=== PATIENT | male | born 1955 | race Caucasian/White ===

== ENCOUNTER 2021-01-25 07:43 | Inpatient (IN) | payer MEDICARE, SELFPAY ==
[2021-01-25] VITALS (13 sets, daily range): BP systolic 95–113
[~2021-01-25] VITALS: Ht 170.2 cm; Wt 90.3 kg
--- NOTE | 2021-01-25 07:43 | NUR ---
Placed in room 8 . Placed on foley artist, blood pressure machine and pulse oximeter. To gown for exam. Side rails up.
--- NOTE | 2021-01-25 07:45 | NUR ---
Pt bib ACLS from home with c/o SOB. Pt reports having h/o A-fib, had cardiac ablation 2 days ago. Woke up at approx 3am with SOB, cough and dyspnea. O2 at home was 88%, pt placed on NRB mask and O2 increased to 97%. Other v/s stable, no acute distress noted.
--- NOTE | 2021-01-25 07:50 | NUR ---
ER Dr. Cormier at bedside examining patient.
--- NOTE | 2021-01-25 08:05 | NUR ---
# 20 gauge angiocath placed to RFA. Use of asceptic technique. Opsite placed over site. Blood return noted. Blood for lab drawn from site. Flushed with 10 cc of normal saline. No evidence of infiltration noted. Patient tolerated well.
[2021-01-25] MEDS ORDERED: NITROGLYCERIN 250 ML IV ONE (08:30)
[2021-01-25] MEDS ORDERED: FUROSEMIDE 100 MG/10 ML VIAL IVP ONE (08:30)
[2021-01-25 09:29] LABS: BASOPHILS % (AUTO) 0.1 % (0.0-2.0); EOSINOPHILS % (AUTO) 0.3 % (0.0-4.0); HEMATOCRIT 38.3 % (36-54); HEMOGLOBIN 12.7 g/dL (14.0-18.0); LYMPHOCYTES # (AUTO) 0.8 K/uL (1.0-5.5); LYMPHOCYTES % (AUTO) 5.8 % (20.5-51.5); MEAN CORPUSCULAR HEMOGLOBIN 30 pg (27-31); MEAN CORPUSCULAR HGB CONC 33 % (32-36); MEAN CORPUSCULAR VOLUME 90 fL (79.0-98.0); MONOCYTES # (AUTO) 1.1 K/uL (0.0-1.0); MONOCYTES % (AUTO) 7.4 % (1.7-9.3); NEUTROPHILS # (AUTO) 12.7 K/uL (1.8-7.7); NEUTROPHILS % (AUTO) 86.4 % (40.0-70.0); PLATELET COUNT (AUTO) 142 K/uL (130-430); RED BLOOD CELL COUNT(AUTO) 4.24 MIL/uL (4.2-6.2); RED CELL DISTRIBUTION WIDTH 13.8 % (9.0-15.0); WHITE BLOOD COUNT (AUTO) 14.7 K/uL (4.8-10.8)
[2021-01-25 09:40] LABS: CALCIUM 8.3 mg/dL (8.4-11.0); CREATININE 0.87 mg/dL (0.55-1.30); POTASSIUM 4.1 mmol/L (3.5-5.1)
[2021-01-25 09:45] LABS: ALBUMIN 3.6 g/dL (3.4-4.8); TOTAL BILIRUBIN 0.5 mg/dL (0.0-1.0)
--- NOTE | 2021-01-25 10:00 | NUR ---
Pt placed on bipap by respiratory, tolerated well.
[2021-01-25 10:14] LABS: BILIRUBIN,URINE NEGATIVE (NEGATIVE); BLOOD, URINE 3+ (NEGATIVE); COLOR,URINE YELLOW (YELLOW); GLUCOSE,URINE NEGATIVE (NEGATIVE); KETONES,URINE NEGATIVE (NEGATIVE); LEUKOCYTE ESTERASE ,URINE NEGATIVE (NEGATIVE); NITRITE, URINE NEGATIVE (NEGATIVE); PH,URINE 5.5 (5.0-8.0); PROTEIN URINE NEGATIVE (NEGATIVE); UROBILINOGEN,URINE 0.2 (0.2-1.0)
[2021-01-25] MEDS ORDERED: ASPIRIN 325 MG TABLET PO ONE (10:15)
[2021-01-25] MEDS ORDERED: OMEP20TA20 PO (10:17)
[2021-01-25] MEDS ORDERED: VITD2000 PO (10:17)
[2021-01-25] MEDS ORDERED: METO25TA6 PO (10:17)
[2021-01-25] MEDS ORDERED: RIVA20TA PO (10:17)
[2021-01-25] MEDS ORDERED: LIP20 PO (10:17)
[2021-01-25] MEDS ORDERED: PRO40 PO (10:17)
[2021-01-25] MEDS ORDERED: SILD20TA PO (10:17)
[2021-01-25] MEDS ORDERED: FURO-150 PO (10:17)
[2021-01-25] MEDS ORDERED: DILT120C89 PO (10:17)
[2021-01-25] MEDS ORDERED: POTA20TA83 PO (10:17)
--- NOTE | 2021-01-25 10:17 | NUR ---
Belongings list completed.
--- NOTE | 2021-01-25 10:17 | NUR ---
Medication reconciliation completed with information provided by Patient. Any prior medication reconciliation on file was reviewed and corrected.
[2021-01-25 10:18] LABS: CLARITY/URINE SLIGHTLY HAZY (CLEAR)
[2021-01-25 11:24] LABS: BACTERIA,URINE FEW /HPF (None Seen); WBC,URINE 0-3 /HPF (0-3)
--- NOTE | 2021-01-25 11:45 | NUR ---
Admit orders received from Dr. Solano, pt to go to ICU. Called for charge nurse, she is at lunch and will call us back.
--- NOTE | 2021-01-25 12:05 | NUR ---
Patient will be admitted to care of Dr. Solano. Admitted to ICU unit. Will go to room 5. Belongings list completed. Complete and up to date summary report printed. SBAR report to be given at bedside with opportunity for questions.
--- NOTE | 2021-01-25 12:15 | NUR ---
INITIAL PT ARRIVED TO ICU VIA BED/STRETCHER & RECEIVED REPORT FROM PACKING AND SHIPPING CLERK. RR 17; HR 81; BP WNR; TEMPERATURE OF 101.2 F TEMPORAL SCAN; O2 SAT 94%. PT A&O X3; DENIED PAIN OR DISCOMFORT. SKIN IS INTACT
--- NOTE | 2021-01-25 12:45 | NUR ---
UPDATED UPDATED PT CONDITION TO MD KAUR. TYLENOL 500 MG PRN, Q4HRS (FOR FEVER) RECEIVED; ALSO RECEIVED ORDERS FOR REGULAR DIET & ROCEPHIN IVPB 1G DAILY
--- NOTE | 2021-01-25 13:00 | NUR ---
DR. VALENZUELA AWARE OF CONSULT
[2021-01-25] MEDS ORDERED: IPRATROPIUM/ALBUTEROL SULFATE 3 ML AMPUL.NEB (DUONEB) INH PRN (13:30)
[2021-01-25] MEDS ORDERED: ACETAMINOPHEN 500 MG TABLET ONE (13:33)
[2021-01-25] MEDS: NACL 0.9% 1,000 ML IV SCH ×2 (14:45→21:37)
--- NOTE | 2021-01-25 14:51 | NUR ---
BIANCA/PASTE MIXING SUPERVISOR ASSESSED PT DR VALENZUELA ROUNDED & ASSESSED PT. DR VALENZUELA ORDERED TO TURN OFF NITROGLYCERIN DRIP
[2021-01-25] MEDS ORDERED: FAMOTIDINE 20 MG TABLET PO ONE (15:00)
[2021-01-25] MEDS ORDERED: ATORVASTATIN 20 MG TABLET PO ONE (15:30)
[2021-01-25] MEDS ORDERED: RIVAROXABAN 10 MG TABLET PO ONE (15:30)
[2021-01-25] MEDS: cefTRIAXone 1 GM in D5W 50 ML IV SCH (16:32)
[2021-01-25] MEDS: AZITHROMYCIN 500 MG in NS 250 ML IV SCH (17:24)
--- NOTE | 2021-01-25 19:19 | NUR ---
ENDORSEMENT REPORT GIVEN TO NIGHT RN FOR CONTINUING OF CARE. PT VS(S) ARE STABLE & DENIED PAIN OR DISCOMFORT
[2021-01-25] MEDS: PANTOPRAZOLE SODIUM 40 MG TAB PO SCH (21:18)
[2021-01-25] MEDS: METOPROLOL TARTRATE 25 MG TABLET PO SCH (21:19)
[2021-01-26] VITALS (19 sets, daily range): BP systolic 100–145
[2021-01-26] MEDS: NACL 0.9% 1,000 ML IV SCH ×3 (01:16→23:47)
--- NOTE | 2021-01-26 05:16 | NUR ---
Nutrition Update Jose Scale 18 noted. Pt admitted for CHF exacerbation Diet: Regular BMI: 31.2 kg/m2 RD to follow per nutrition care standards.
[2021-01-26] MEDS: ACETAMINOPHEN 500 MG TABLET PO PRN ×3 (06:24→23:04)
[2021-01-26 06:39] LABS: BASOPHILS % (AUTO) 0.2 % (0.0-2.0); EOSINOPHILS # (AUTO) 0.2 K/uL (0.0-0.4); EOSINOPHILS % (AUTO) 2.1 % (0.0-4.0); HEMATOCRIT 34.6 % (36-54); HEMOGLOBIN 11.5 g/dL (14.0-18.0); LYMPHOCYTES # (AUTO) 1.2 K/uL (1.0-5.5); LYMPHOCYTES % (AUTO) 13.5 % (20.5-51.5); MEAN CORPUSCULAR HEMOGLOBIN 30 pg (27-31); MEAN CORPUSCULAR HGB CONC 33 % (32-36); MEAN CORPUSCULAR VOLUME 91 fL (79.0-98.0); MONOCYTES % (AUTO) 11.3 % (1.7-9.3); NEUTROPHILS # (AUTO) 6.7 K/uL (1.8-7.7); NEUTROPHILS % (AUTO) 72.9 % (40.0-70.0); PLATELET COUNT (AUTO) 124 K/uL (130-430); RED BLOOD CELL COUNT(AUTO) 3.82 MIL/uL (4.2-6.2); RED CELL DISTRIBUTION WIDTH 13.6 % (9.0-15.0); WHITE BLOOD COUNT (AUTO) 9.1 K/uL (4.8-10.8)
[2021-01-26 06:56] LABS: CALCIUM 7.9 mg/dL (8.4-11.0); CREATININE 0.77 mg/dL (0.55-1.30); POTASSIUM 4.2 mmol/L (3.5-5.1); THYROID STIMULATING HORMONE 0.5 uIu/mL (0.36-3.74); TOTAL BILIRUBIN 1.1 mg/dL (0.0-1.0)
--- NOTE | 2021-01-26 08:12 | NUR ---
0730 pt in no distress, sat 96%hr 78 rr 24 on 5l nc. Addendum: 01/26/21 at 0815 by Etta Dasilva RT Amended: Links added.
[2021-01-26] MEDS: METOPROLOL TARTRATE 25 MG TABLET PO SCH ×2 (08:42→21:46)
[2021-01-26] MEDS: PANTOPRAZOLE SODIUM 40 MG TAB PO SCH ×2 (08:42→21:45)
[2021-01-26] MEDS: ATORVASTATIN 20 MG TABLET PO SCH (08:42)
[2021-01-26] MEDS: RIVAROXABAN 10 MG TABLET PO SCH (08:45)
[2021-01-26] MEDS ORDERED: FAMOTIDINE 20 MG TABLET PO SCH (09:00)
[2021-01-26] MEDS: cefTRIAXone 1 GM in D5W 50 ML IV SCH (15:14)
[2021-01-26] MEDS: AZITHROMYCIN 500 MG in NS 250 ML IV SCH (16:22)
--- NOTE | 2021-01-26 17:55 | NUR ---
RECEIVING NOTES: RECEIVED PATIENT FROM ICU VIA WHEELCHAIR. BREATHING EVEN AND NON LABORED TO RA. DENIES ANY DISCOMFORT AT THIS TIME. FALL AND SAFETY MEASURES REINFORCED. ORIENTED TO ROOM. CALL LIGHT WITHIN REACH.
--- NOTE | 2021-01-26 18:12 | NUR ---
gave report to Collette juarez, all questions answered/transferred pt by wheelchair, pt ambulates with strong gait, denies dizzyness,sob/mw
[2021-01-26] MEDS ORDERED: PROMETHAZINE HCL/CODEINE 6.25-10 mg/5 mL UDC PO PRN (20:15)
[2021-01-27] VITALS: BP_SYST 125
[2021-01-27] MEDS: ACETAMINOPHEN 500 MG TABLET PO PRN (06:27)
[2021-01-27 07:00] LABS: BASOPHILS % (AUTO) 0.3 % (0.0-2.0); EOSINOPHILS # (AUTO) 0.3 K/uL (0.0-0.4); EOSINOPHILS % (AUTO) 3.3 % (0.0-4.0); HEMATOCRIT 37.2 % (36-54); HEMOGLOBIN 12.5 g/dL (14.0-18.0); LYMPHOCYTES # (AUTO) 1.2 K/uL (1.0-5.5); LYMPHOCYTES % (AUTO) 15.5 % (20.5-51.5); MEAN CORPUSCULAR HEMOGLOBIN 30 pg (27-31); MEAN CORPUSCULAR HGB CONC 34 % (32-36); MEAN CORPUSCULAR VOLUME 91 fL (79.0-98.0); MONOCYTES # (AUTO) 0.9 K/uL (0.0-1.0); NEUTROPHILS # (AUTO) 5.4 K/uL (1.8-7.7); NEUTROPHILS % (AUTO) 69.9 % (40.0-70.0); PLATELET COUNT (AUTO) 145 K/uL (130-430); RED BLOOD CELL COUNT(AUTO) 4.11 MIL/uL (4.2-6.2); RED CELL DISTRIBUTION WIDTH 13.5 % (9.0-15.0); WHITE BLOOD COUNT (AUTO) 7.8 K/uL (4.8-10.8)
[2021-01-27 07:32] LABS: CALCIUM 8.7 mg/dL (8.4-11.0); CREATININE 0.79 mg/dL (0.55-1.30); POTASSIUM 4.2 mmol/L (3.5-5.1)
[2021-01-27 07:45] VITALS: BP_SYST 142
--- NOTE | 2021-01-27 08:00 | NUR ---
am notes late entry pt stable denies any pain or orther discomfort. vitals stable . res even and unlabored. safety/fall precautions in place and maintained. call light within reach. poc discussed with pt. verbalized understanding.will conitnue to monitor
[2021-01-27] MEDS: ATORVASTATIN 20 MG TABLET PO SCH (09:28)
[2021-01-27] MEDS: PANTOPRAZOLE SODIUM 40 MG TAB PO SCH (09:28)
[2021-01-27] MEDS: METOPROLOL TARTRATE 25 MG TABLET PO SCH (09:29)
[2021-01-27] MEDS: RIVAROXABAN 10 MG TABLET PO SCH (09:31)
[2021-01-27 12:00] VITALS: BP_SYST 129
[2021-01-27] MEDS: cefTRIAXone 1 GM in D5W 50 ML IV SCH (15:20)
--- NOTE | 2021-01-27 15:27 | NUR ---
ROUNDS PT STABLE . DENIES ANY PAIN OR DISTRESS. DENIES SOB. VITALS STABLE. DUE ANTIBIOTICS STARTED ORDERED PT TOLERATED WELL. WILL CONTINUE TO MONITOR
[2021-01-27 15:28] VITALS: BP_SYST 135
[2021-01-27] MEDS ORDERED: LEVO500T89 PO (16:09)
[2021-01-27] MEDS: AZITHROMYCIN 500 MG in NS 250 ML IV SCH (16:15)
[2021-01-27 17:21] VITALS: BP_SYST 119
--- NOTE | 2021-01-27 18:28 | NUR ---
D/C Patient Patient given medication reconciliation form and D/C instructions. Exit Care provided. Patient verbalized understanding. MD discussed with patient the results and treatment provided. Ambulatory with steady gait for discharge to home. Patient in stable condition, ID band removed. IV catheter removed, intact and dressing applied, no active bleeding. Rx of levaquin 500 mg po given. Patient educated on pain management. All belongings sent with patient.pt left home with demetri in private car
--- NOTE | 2021-01-27 18:30 | NUR ---
post chf discharge appointment pt has scheduled appointment with [facility] on 01/29/21 at 1000.
== END 2021-01-27 18:30 | disposition home or self-care (01) | DRG 871 ==
LOC: SED 07:43 → SIC 11:42 → STU 01-26 16:30
PROVIDERS: ADMIT Internal Medicine; ATTEND Internal Medicine
PROC: 5A09357 Assistance with Respiratory Ventilation, Less than 24 Consecutive Hours, Continuous Positive Airway Pressure (ICD-10-PCS; principal; 2021-01-25)
DX: A41.9 Sepsis, unspecified organism (principal); I21.4 Non-ST elevation (NSTEMI) myocardial infarction; J18.9 Pneumonia, unspecified organism; J96.90 Respiratory failure, unspecified, unspecified whether with hypoxia or hypercapnia; J44.0 Chronic obstructive pulmonary disease with (acute) lower respiratory infection; I50.9 Heart failure, unspecified; I11.0 Hypertensive heart disease with heart failure; E86.1 Hypovolemia; I34.1 Nonrheumatic mitral (valve) prolapse; E78.5 Hyperlipidemia, unspecified; I48.0 Paroxysmal atrial fibrillation; Z20.822 Contact with and (suspected) exposure to COVID-19; Z79.899 Other long term (current) drug therapy; Z79.01 Long term (current) use of anticoagulants; Z86.16 Personal history of COVID-19; Z87.891 Personal history of nicotine dependence; Z95.2 Presence of prosthetic heart valve
CPT/HCPCS: 36415; 71045; 80053; 81000; 83605; 83880; 84443; 84484; 85025; 85379; 87040-TC; 87081; 93005; 93306; 94660; 96361; 96374; 99291; G0378; J0456; J0696; J1940; J3490; J7050; J7060